=== PATIENT | male | born 1985 | race Caucasian/White ===

== ENCOUNTER 2016-12-09 09:14 | Emergency (ER) | payer BC, OTHER ==
--- NOTE | 2016-12-09 09:59 | EDM.PDOC ---
ED HPI GENERAL MEDICAL PROBLEM - General Chief Complaint: Upper Extremity Injury/Pain Stated Complaint: left hand thumb injury Time Seen by Provider: 12/09/16 09:39 Source of Information: Reports: Patient History Limitations: Reports: No Limitations - History of Present Illness INITIAL COMMENTS - FREE TEXT/NARRATIVE: Patient brought in from [facility] after having his left thumb caught between two metal plates at work. Says distal portion of thumb mainly involved. Can wiggle thumb in all directions using proximal joint, however cannot really flex it at distal joint. Reports the thumb throbs a bit and is somewhat numb in sensation. Denies other injuries. No laceration or bleeding. Rest of hand has milder discomfort as it too was involved. Denies any numbness in other portions of hand/fingers. Full ROM per patient otherwise. He feels he can return to work for next shift. Left 1-Thumb Pain Score (Numeric/FACES): 3 - Related Data Allergies Allergy/AdvReac Type Severity Reaction Status Date / Time bacitracin Allergy Hives Verified 12/09/16 09:20 clindamycin Allergy Hives Verified 12/09/16 09:20 gentamicin [Gentamicin] Allergy Hives Verified 12/09/16 09:20 Sulfa (Sulfonamide Allergy Swelling Verified 12/09/16 09:20 Antibiotics) Home Meds: Home Meds Albuterol [IJD: Albuterol HFA] 2 puff INH Q4HR PRN 12/09/16 [History] Lisinopril 10 mg PO DAILY 12/09/16 [History] Past Medical History Cardiovascular History: Reports: Hypertension Musculoskeletal History: Reports: Other (See Below) Other Musculoskeletal History: spina bifida - Past Surgical History Musculoskeletal Surgical History: Reports: Other (See Below) Other Musculoskeletal Surgeries/Procedures:: Multiple surgies due to spina bifida Social & Family History - Tobacco Use Smoking Status *Q: Never Smoker Second Hand Smoke Exposure: No - Alcohol Use Days Per Week of Alcohol Use: 0 - Recreational Drug Use Recreational Drug Use: No Drug Use in Last 12 Months: No Review of Systems - Review of Systems Review Of Systems: ROS reveals no pertinent complaints other than HPI. ED EXAM, GENERAL - Physical Exam Exam: See Below Exam Limited By: No Limitations General Appearance: Alert, WD/WN, No Apparent Distress Eye Exam: Bilateral Eye: Normal Inspection, PERRL Head: Atraumatic, Normocephalic Respiratory/Chest: No Respiratory Distress Peripheral Pulses: 2+: Radial (L) Extremities: Other (Mild swelling noted left thumb. Hand and other fingers do not appear noticeably swollen compared to uninvolved hand. Able to flex and extend digits 2-5 without issue. Has limited ability to flex left thumb/distal IP joint. Can move base of thumb freely. Skin intact. Wrist motion intact. Vascularly intact with good cap refill. ) Course - Vital Signs Last Recorded V/S: Last Vital Signs Temp 37.2 C 12/09/16 09:15 Pulse 96 12/09/16 09:15 Resp 16 12/09/16 09:15 BP 164/96 H 12/09/16 09:15 Pulse Ox 96 12/09/16 09:15 - Orders/Labs/Meds Orders: Active Orders 24 hr Category Date Time Status Hand Comp Min 3V Lt [CR] Stat Exams 12/09/16 09:21 Taken - Radiology Interpretation Free Text/Narrative:: left hand xray did not show obvious fracture. Radiology review pending. - Re-Assessments/Exams Free Text/Narrative Re-Assessment/Exam: 12/09/16 10:06 Crush injuries discussed with patient, along with potential for compartment syndrome in some situations. Thumb placed in metal splint for support/comfort. Patient is to observe for any worsening problems and should come to the ER if issues are noted. BP also discussed. Recommended that he follow up for recheck of BP with his clinic within the next week. If Radiology notes fracture, patient will be contacted. Otherwise patient can return to work next scheduled shift. He feels that he will be able to work. Departure - Departure Time of Disposition: 09:55 Disposition: Home, Self-Care 01 Condition: Good Clinical Impression: Crushing injury of thumb, left Qualifiers: Encounter type: initial encounter Qualified Code(s): S67.02XA - Crushing injury of left thumb, initial encounter - Discharge Information Instructions: Crush Injury, Fingers or Toes, [id number] Referrals: PCP,Unknown [Ordering Only Provider] - Forms: ED Department Discharge Additional Instructions: Wear splint for comfort over involved thumb for today and next two days. Ibuprofen or Tylenol, ice may help discomfort. If you have sudden worsening pain /pale fingertip then return to ER as we discussed. If pain has not significantly improved within 72 hours, get injury rechecked at you primary clinic. Also, recommend you get home BP machine to monitor your blood pressure yourself. Today's elevated reading may likely be in part due to the injury and discomfort. However, please get your blood pressure rechecked within a week at your doctor's office. - My Orders Last 24 Hours: My Active Orders 12/09/16 09:21 Hand Comp Min 3V Lt [CR] Stat - Assessment/Plan Last 24 Hours: My Active Orders 12/09/16 09:21 Hand Comp Min 3V Lt [CR] Stat
== END 2016-12-09 10:05 | disposition home or self-care (01) ==
LOC: LL.ED 09:14
DX: S67.02XA Crushing injury of left thumb, initial encounter (principal); I10 Essential (primary) hypertension; Z79.899 Other long term (current) drug therapy; Z88.1 Allergy status to other antibiotic agents; Z88.2 Allergy status to sulfonamides; W23.0XXA Caught, crushed, jammed, or pinched between moving objects, initial encounter; Y99.0 Civilian activity done for income or pay
CPT/HCPCS: 99283